=== PATIENT | male | born 1955 | race African-American/Black ===

== ENCOUNTER 2021-12-01 10:22 | Inpatient (IN) | payer MEDICARE, OTHER ==
[~2021-12-01] VITALS: Ht 193 cm; Wt 86.2 kg
[2021-12-01] MEDS ORDERED: MAGNESIUM/ALUMINUM HYDROXIDE/SIMETHICONE 30ML UDC PO STA (11:20)
[2021-12-01] MEDS ORDERED: ONDANSETRON 4MG ODT PO STA (11:20)
[2021-12-01] MEDS ORDERED: FAMOTIDINE 20MG TABLET PO ONE (11:30)
[2021-12-01 12:22] LABS: BASOPHILS % 0.7 % (0.0-2.0); EOSINOPHILS % 0.7 % (0.0-5.0); HEMATOCRIT. 43.7 % (42.0-52.0); HEMOGLOBIN. 14.4 g/dL (14.0-18.0); LYMPHOCYTES % 12.8 % (20.0-50.0); MEAN CORPUSCULAR HEMOGLOBIN 29.3 pg (28.0-32.0); MEAN CORPUSCULAR VOLUME 88.7 fL (80.0-94.0); MEAN PLATELET VOLUME 7.9 fl (7.4-10.4); MONOCYTES % 9.7 % (2.0-8.0); NEUTROPHILS % 76.1 % (40.0-76.0); PLATELET 215 x1000/uL (130-400); RED BLOOD CELL COUNT 4.93 mill/uL (4.7-6.1); RED CELL DISTRIBUTION WIDTH 14.8 % (11.6-14.6)
[2021-12-01 12:27] LABS: CHLORIDE 101 mEq/L (98-107)
[2021-12-01] MEDS ORDERED: DIPHENHYDRAMINE 50MG/ML VIAL IV PRN (16:00)
[2021-12-01] MEDS ORDERED: ONDANSETRON HCL 4MG/2ML INJ IV PRN (16:00)
[2021-12-01] MEDS ORDERED: HYDRALAZINE 20MG/ML VIAL IV PRN (16:00)
[2021-12-01] MEDS ORDERED: ACETAMINOPHEN 325MG TABLET PO PRN ×2 (16:00)
[2021-12-01] MEDS: DEXT 5%/0.45% NACL 1000ML 1,000 ML IV SCH ×2 (16:33→22:40)
[2021-12-01 17:02] LABS: CLARITY URINE CLEAR (CLEAR); COLOR URINE YELLOW (YELLOW); KETONES URINE NEGATIVE (NEGATIVE); LEUKOCYTE ESTERASE URINE TRACE (NEGATIVE); NITRITE URINE NEGATIVE (NEGATIVE); OCCULT BLOOD URINE TRACE (NEGATIVE); PROTEIN URINE TRACE (NEGATIVE); SPECIFIC GRAVITY URINE 1.012 (1.005-1.030); UROBILINOGEN URINE 0.2 E.U./dL (0.2-1.0)
[2021-12-01] MEDS: CLONIDINE 0.1MG TABLET PO PRN (18:28)
[2021-12-01] MEDS ORDERED: ZOLPIDEM TARTRATE 5MG TABLET PO PRN (21:00)
[2021-12-01 21:30] VITALS: BP 137/91
[2021-12-01 22:00] VITALS: BP 137/91
[2021-12-01] MEDS ORDERED: TOPUD MT (23:57)
[2021-12-02] VITALS (7 sets, daily range): BP systolic 136–172; BP diastolic 85–109
[2021-12-02] MEDS: CLONIDINE 0.1MG TABLET PO PRN ×2 (05:18→11:37)
[2021-12-02] MEDS: DEXT 5%/0.45% NACL 1000ML 1,000 ML IV SCH (05:19)
[2021-12-02 06:50] LABS: BASOPHILS % 0.6 % (0.0-2.0); EOSINOPHILS % 2.8 % (0.0-5.0); HEMATOCRIT. 38.3 % (42.0-52.0); HEMOGLOBIN. 12.9 g/dL (14.0-18.0); LYMPHOCYTES % 17.7 % (20.0-50.0); MEAN CORPUSCULAR HEMOGLOBIN 29.4 pg (28.0-32.0); MEAN CORPUSCULAR VOLUME 87.2 fL (80.0-94.0); MONOCYTES % 13.6 % (2.0-8.0); NEUTROPHILS % 65.3 % (40.0-76.0); PLATELET 191 x1000/uL (130-400); RED BLOOD CELL COUNT 4.39 mill/uL (4.7-6.1); RED CELL DISTRIBUTION WIDTH 14.7 % (11.6-14.6)
[2021-12-02 07:06] LABS: CHLORIDE 110 mEq/L (98-107)
[2021-12-02] MEDS: CLONIDINE 0.1MG TABLET PO SCH (21:20)
[2021-12-03] MEDS: CLONIDINE 0.1MG TABLET PO SCH (06:00)
[2021-12-03 08:00] VITALS: BP 150/106
[2021-12-03] MEDS: AMLODIPINE 5MG TABLET PO SCH (09:45)
[2021-12-03] MEDS: DEXT 5%/0.45% NACL 1000ML 1,000 ML IV SCH ×4 (09:46→21:20)
[2021-12-03 12:00] VITALS: BP 165/111
[2021-12-03] MEDS: CLONIDINE 0.2MG TABLET PO SCH ×2 (15:00→21:30)
[2021-12-03 16:00] VITALS: BP 148/100
[2021-12-03] MEDS ORDERED: MAGNESIUM HYDROXIDE 400MG/5ML 30ML UDC PO PRN (16:30)
[2021-12-03 17:38] LABS: BASOPHILS % 0.9 % (0.0-2.0); EOSINOPHILS % 2.6 % (0.0-5.0); HEMATOCRIT. 36.9 % (42.0-52.0); HEMOGLOBIN. 12.4 g/dL (14.0-18.0); LYMPHOCYTES % 22.6 % (20.0-50.0); MEAN CORPUSCULAR HEMOGLOBIN 29.4 pg (28.0-32.0); MEAN CORPUSCULAR VOLUME 87.3 fL (80.0-94.0); MEAN PLATELET VOLUME 7.7 fl (7.4-10.4); MONOCYTES % 10.6 % (2.0-8.0); NEUTROPHILS % 63.3 % (40.0-76.0); PLATELET 194 x1000/uL (130-400); RED BLOOD CELL COUNT 4.23 mill/uL (4.7-6.1); RED CELL DISTRIBUTION WIDTH 14.6 % (11.6-14.6)
[2021-12-03] MEDS: DOCUSATE SODIUM 100MG CAPSULE PO SCH (17:53)
[2021-12-03 17:55] LABS: CHLORIDE 106 mEq/L (98-107)
[2021-12-03 18:03] LABS: PHOSPHORUS 2.4 mg/dL (2.5-4.9)
[2021-12-03 18:05] LABS: CREATINE KINASE 81 IU/L (39-308)
[2021-12-03 20:00] VITALS: BP 122/82
[2021-12-04] VITALS: BP 154/106
[2021-12-04 04:00] VITALS: BP 136/97
[2021-12-04] MEDS: CLONIDINE 0.2MG TABLET PO SCH ×2 (07:04→13:51)
[2021-12-04 08:00] VITALS: BP 155/99
[2021-12-04 08:08] LABS: BASOPHILS % 0.6 % (0.0-2.0); HEMATOCRIT. 39.2 % (42.0-52.0); LYMPHOCYTES % 25.4 % (20.0-50.0); MEAN CORPUSCULAR HEMOGLOBIN 29.1 pg (28.0-32.0); MEAN CORPUSCULAR VOLUME 87.8 fL (80.0-94.0); MEAN PLATELET VOLUME 7.8 fl (7.4-10.4); MONOCYTES % 11.8 % (2.0-8.0); NEUTROPHILS % 59.2 % (40.0-76.0); PLATELET 194 x1000/uL (130-400); RED BLOOD CELL COUNT 4.47 mill/uL (4.7-6.1); RED CELL DISTRIBUTION WIDTH 14.1 % (11.6-14.6)
[2021-12-04 08:12] LABS: *CREATININE RANDOM URINE 83.1 mg/dL (Not Estab.); MICROALBUMIN RANDOM URINE 53.5 ug/mL (Not Estab.)
[2021-12-04 08:13] LABS: CHLORIDE 106 mEq/L (98-107)
[2021-12-04 08:19] LABS: PHOSPHORUS 2.4 mg/dL (2.5-4.9)
[2021-12-04] MEDS: DOCUSATE SODIUM 100MG CAPSULE PO SCH ×2 (08:46→16:58)
[2021-12-04] MEDS: AMLODIPINE 5MG TABLET PO SCH (08:46)
[2021-12-04] MEDS ORDERED: DUTASTERIDE 0.5MG CAPSULE PO SCH (09:00)
[2021-12-04] MEDS ORDERED: TAMSULOSIN HCL 0.4MG SR CAPSULE PO SCH (09:00)
[2021-12-04] MEDS: DEXT 5%/0.45% NACL 1000ML 1,000 ML IV SCH (09:21)
[2021-12-04 12:00] VITALS: BP 127/87
[2021-12-04 16:00] VITALS: BP 130/96
[2021-12-04] MEDS ORDERED: POTASSIUM-SODIUM PHOSPHATE POWDER PACKET PO NR (16:00)
[2021-12-04 16:37] VITALS: BP 130/96
== END 2021-12-04 18:15 | disposition home or self-care (01) | DRG 726 ==
LOC: ER 10:22 → 8WST 13:27 → ENRESERV 20:46
PROVIDERS: ADMIT Internal Medicine; ATTEND Internal Medicine
DX: N40.1 Benign prostatic hyperplasia with lower urinary tract symptoms (principal); N13.8 Other obstructive and reflux uropathy; N17.9 Acute kidney failure, unspecified; N13.30 Unspecified hydronephrosis; N32.0 Bladder-neck obstruction; I10 Essential (primary) hypertension; R33.8 Other retention of urine; K40.90 Unilateral inguinal hernia, without obstruction or gangrene, not specified as recurrent; E83.39 Other disorders of phosphorus metabolism; Z20.822 Contact with and (suspected) exposure to COVID-19; Z87.891 Personal history of nicotine dependence
CPT/HCPCS: 36415; 71045; 74176; 80048; 80053; 81003; 82043; 82550; 82570; 83735; 83935; 84100; 84153; 84300; 84484; 85025; 87426; 93005; 99285; C1893; J0360; Q0162; A4315; G0103

== ENCOUNTER 2021-12-05 10:53 | Emergency (ER) | payer MEDICARE ==
[~2021-12-05] VITALS: Ht 193 cm; Wt 84.0 kg
[~2021-12-05 10:53] MED LIST: TOPUD MT
[2021-12-05] MEDS ORDERED: ACETAMINOPHEN 325MG TABLET PO ONE (12:00)
[2021-12-05] MEDS ORDERED: LIDOCAINE HCL 2% JELLY 5ML MM ONE (12:00)
[2021-12-05 12:42] VITALS: BP 128/87
== END 2021-12-05 12:44 | disposition home or self-care (01) ==
LOC: ER 10:53
DX: T83.098A Other mechanical complication of other urinary catheter, initial encounter (principal); Y84.6 Urinary catheterization as the cause of abnormal reaction of the patient, or of later complication, without mention of misadventure at the time of the procedure; Y92.018 Other place in single-family (private) house as the place of occurrence of the external cause
CPT/HCPCS: 99282

== ENCOUNTER 2022-05-27 14:44 | Emergency (ER) | payer MEDICARE ==
[~2022-05-27] VITALS: Ht 182.9 cm; Wt 68.0 kg
[~2022-05-27 14:44] MED LIST changes: +AMLO5TAB4 MT; +DUTA0.5C37 PO; +TAMS-11 PO
[2022-05-27 14:46] VITALS: BP 158/13
[2022-05-27 16:44] LABS: BASOPHILS % 0.9 % (0.0-2.0); EOSINOPHILS % 0.1 % (0.0-5.0); HEMATOCRIT. 36.4 % (42.0-52.0); HEMOGLOBIN. 12.1 g/dL (14.0-18.0); LYMPHOCYTES % 12.1 % (20.0-50.0); MEAN CORPUSCULAR HEMOGLOBIN 27.9 pg (28.0-32.0); MEAN CORPUSCULAR VOLUME 83.7 fL (80.0-94.0); MEAN PLATELET VOLUME 7.1 fl (7.4-10.4); MONOCYTES % 10.1 % (2.0-8.0); NEUTROPHILS % 76.8 % (40.0-76.0); PLATELET 420 x1000/uL (130-400); RED BLOOD CELL COUNT 4.35 mill/uL (4.7-6.1); RED CELL DISTRIBUTION WIDTH 16.3 % (11.6-14.6)
[2022-05-27 16:49] LABS: CLARITY URINE TURBID (CLEAR); COLOR URINE YELLOW (YELLOW); KETONES URINE NEGATIVE (NEGATIVE); LEUKOCYTE ESTERASE URINE 3+ (NEGATIVE); NITRITE URINE NEGATIVE (NEGATIVE); OCCULT BLOOD URINE 2+ (NEGATIVE); PH URINE 6.5 (4.5-8.0); PROTEIN URINE 2+ (NEGATIVE); SPECIFIC GRAVITY URINE 1.012 (1.005-1.030); UROBILINOGEN URINE 0.2 E.U./dL (0.2-1.0)
[2022-05-27 16:52] LABS: CHLORIDE 105 mEq/L (98-107)
[2022-05-27] MEDS ORDERED: CEFU500T41 MT (18:58)
== END 2022-05-27 19:28 | disposition home or self-care (01) ==
LOC: ER 14:44
DX: T83.098A Other mechanical complication of other urinary catheter, initial encounter (principal); N39.0 Urinary tract infection, site not specified; N40.0 Benign prostatic hyperplasia without lower urinary tract symptoms; J44.9 Chronic obstructive pulmonary disease, unspecified; E11.9 Type 2 diabetes mellitus without complications; N28.9 Disorder of kidney and ureter, unspecified; F80.89 Other developmental disorders of speech and language; Y84.6 Urinary catheterization as the cause of abnormal reaction of the patient, or of later complication, without mention of misadventure at the time of the procedure; Y92.018 Other place in single-family (private) house as the place of occurrence of the external cause
CPT/HCPCS: 36415; 51702; 80053; 81003; 85025; 87077; 87186; 99284

== ENCOUNTER → 2025-02-10 | Emergency (ER) | payer BC, MEDICAID ==
[~2025-02-10] VITALS: Ht 185.4 cm; Wt 87.0 kg
[~2025-02-10] MED LIST changes: -AMLO5TAB4 MT; +AMLO5TAB5 MT; +CEFU500T66 MT; -TAMS-11 PO; +TAMS-54 PO
[2025-02-10 03:00] LABS: BASOPHILS % 0.8 % (0.0-2.0); EOSINOPHILS % 2.5 % (0.0-5.0); LYMPHOCYTES % 22.2 % (20.0-50.0); MEAN CORPUSCULAR HGB CONC 31.7 g/dL (31.0-37.0); MEAN CORPUSCULAR VOLUME 85.1 fL (80.0-94.0); MEAN PLATELET VOLUME 7.7 fl (7.4-10.4); NEUTROPHILS % 67.5 % (40.0-76.0); PLATELET 244 x1000/uL (130-400); RED BLOOD CELL COUNT 4.82 mill/uL (4.7-6.1); RED CELL DISTRIBUTION WIDTH 16.6 % (11.6-14.6)
[2025-02-10 03:57] LABS: CHLORIDE 101 mEq/L (98-107); SODIUM 139 mEq/L (136-145)
[2025-02-10 03:58] LABS: CARBON DIOXIDE 30 mEq/L (21-32)
[2025-02-10 04:03] LABS: GLUCOSE 113 mg/dL (70-105)
[2025-02-10 04:04] LABS: UREA NITROGEN BLOOD 11 mg/dL (9-23)
[2025-02-10 04:05] LABS: ALANINE AMINOTRANSFERASE 28 IU/L (10-49); ALBUMIN 4.2 g/dL (3.2-4.8); ASPARTATE AMINOTRANSFERASE 26 IU/L (<34)
[2025-02-10 04:06] LABS: BILIRUBIN DIRECT 0.1 mg/dL (<=3.0); BILIRUBIN TOTAL 0.4 mg/dL (0.1-1.0); PROTEIN TOTAL 7.6 g/dL (6.0-8.3)
== END | disposition home or self-care (01) ==
LOC: ER 02:06
DX: R10.9 Unspecified abdominal pain (principal); Z53.21 Procedure and treatment not carried out due to patient leaving prior to being seen by health care provider
CPT/HCPCS: 36415; 80048; 80076; 85025